=== PATIENT | female | born 1955 | race Caucasian/White ===

== ENCOUNTER 2023-11-18 09:08 | Inpatient (IN) | payer OTHER, SELFPAY ==
--- NOTE | 2023-10-21 07:14 | CM ---
Patient is scheduled for an elective L TKR on 11/18/23. Spoke with patient prior to surgery via telephone. Patient had a R TKR at in 2021. Reintroduced role of Orthopedic Navigator. Patient reports that she lives with a friend in a one story home.
There is one step to enter. She currently functions independently. She has a rolling walker and cane. She has never had VN services. PCP is Dr. Lul Laurent.
Discussed orthopedic program and post surgical plans. Reviewed that goal is for her to return home when directed by surgeon. Also reviewed outpatient PT. Patient is in agreement with tentative plan and will go directly to outpatient PT at [facility] PT. She will have support from her friend when she goes home.
Patient will complete online education.
Plan: Orthopedic Navigator will remain available to assist with the care of patient and will reassess discharge needs after surgery.
--- NOTE | 2023-11-02 10:25 | HPS.HSE ---
Family Physician
-
Family Physician: Lul Laurent
Chief Complaint
-
Advanced primary osteoarthritis of the left knee.
History of Present Illness
The patient is a 68-year-old morbidly obese, female presenting today for advanced primary osteoarthritis of the left knee. The patient previously underwent an uncomplicated right total knee arthroplasty in December [address] Jamshid Hendricks.
She returns to [facility] today with complaints of significant left knee pain associated with her osteoarthritis. She notes that her current left knee pain is greatly interfering with her activities of daily living and is overall impacting
her quality of life. She has tried and failed multiple conservative treatment measures in the past for her left knee pain. These conservative treatment measures include physical therapy, self-directed therapeutic exercises, injection therapy,
medical management with Tylenol and NSAIDs, and the application of ice and/or heat. Recent x-ray findings of the left knee demonstrated advanced osteoarthritic changes. She was determined to be in need of a left total knee arthroplasty. She denies
any current complaints today, such as chest pain, shortness of breath, palpitations, nausea, vomiting, diarrhea, lightheadedness, dizziness, cough, sore throat, or fever.
Medical History
Past Medical History
Past Medical History: Reports Other
Additional Past Medical History:
1. Osteoarthritis, status post right total knee arthroplasty, 12/2021, by Dr. Jamshid Hendricks.
2. Hypertension.
3. Hypercholesterolemia.
4. Heart murmur; echocardiogram, 09/2021, without significant valvular disease.
5. Chronic peripheral edema.
6. Obstructive sleep apnea, non-compliant with CPAP.
7. Lumbar degenerative disc disease.
8. Lumbago.
9. Uterine fibroids, status post hysterectomy.
10. Anxiety.
11. Depression.
12. Acute renal failure after previous laminectomy, secondary to acute urinary retention.
13. Prediabetes, A1c 6.1.
14. Morbid obesity, BMI 43.2; status post sleeve gastrectomy.
15. Current tobacco abuse.
16. Cannabis dependence.
Past Surgical History: Reports Other
Additional Past Surgical History:
1. Right total knee arthroplasty, 12/2021, by Dr. Jamshid Hendricks.
2. Bilateral carpal tunnel release.
3. Right humerus repair.
4. Hysterectomy.
5. L1-L5 laminectomy.
6. Sleeve gastrectomy.
7. Epidural steroid injections.
8. Colonoscopy.
Social History
Tobacco: Smoker (She is a current 2-3 cigarette per day smoker but is reportedly attempting to quit prior to surgery. She is utilizing Nicoderm gum in her attempts to quit. She reports she has been smoking on and off for the last 40 years. )
Alcohol: None
Drug: Marijuana (occasional, recreational)
Living: Other (The patient lives in a [place] with her friend. )
Family History
Family History: Not pertinent
Allergies / Home Medications
Allergy/Medication List:
HOME MEDICATIONS:
1. Rosuvastatin calcium 10 mg p.o. daily.
2. Losartan/hydrochlorothiazide 100-25 mg p.o. daily.
3. Bupropion HCl 300 mg p.o. daily.
4. Amlodipine 5 mg p.o. daily.
5. Escitalopram oxalate 20 mg p.o. daily.
�
ALLERGIES:� Sulfa. Tramadol and NSAIDs per records.
Review of Systems
-
A 12 point ROS was completed and negative except as noted: Yes
Physical Exam
Vital Signs
Blood pressure 156/89. Heart rate 59. Respirations 18. Pulse ox 97%.
Height 5 feet, 0.5 inches. Weight 102.1 kg. BMI 43.2.
Physical Exam
General: Well Developed, Well Nourished and No Apparent Distress
HEENT: NormoCephalic, Moist mucous membranes, Atraumatic and PERRLA
Respiratory: Clear
Cardiac: Regular Rhythm
GI: Soft, Non Tender, Non Distended and Other (Morbidly obese. )
Musculoskeletal: Other (Left knee and lower extremity: varus alignment, trace effusion, range of motion 0-140, tenderness to palpation over medial joint line and peripatellar. Able to preform straight leg raise. )
Skin: Warm and Dry
Neuro: AO x 3 and Nonfocal/grossly intact
Laboratory Results
-
DIAGNOSTIC STUDIES as of 11/02/2023: White blood cell count 8.3. Hemoglobin 15.1. Platelet count 244,000. Sodium 140. Potassium 4.2. BUN 19. Creatinine 0.7. Glucose 88. Hemoglobin A1c 6.1. Calcium 9.2. AST 23. ALT 19. Albumin 4.0. MRSA screen
negative.
EKG 11/02/2023: Sinus bradycardia. Nonspecific T wave abnormality. When compared to the EKG of September 22, 2021, no significant change was found.
Nuclear stress test 10/08/2021: Negative EKG for ischemia. No complex arrhythmias.
Echocardiogram 10/08/2021: Study quality suboptimal due to poor acoustic windows. There is normal biventricular systolic function with an ejection fraction 60-65%.� There is grade 1 diastolic dysfunction.�Cannot adequately assess regional wall
motion abnormalities due to poor endocardial visualization. Aortic valve is suboptimally visualized although appears to display adequate leaflet excursion without significant aortic stenosis or regurgitation.
Impression/Plan
-
CLEARANCES:
1. Primary medical, Lul Laurent MD, cleared.
� � Primary medical phone number: [phone].
2. Dental cleared.
IMPRESSION/PLAN:
1. Advanced primary osteoarthritis of the left knee in need of a left total knee arthroplasty by Dr. Jamshid Hendricks on 11/18/2023. The benefits and risks of the procedure have been explained to the patient. The patient understands these risks and
wishes to proceed.
2. DVT prophylaxis: Aspirin with bilateral venous compression devices.
3. Acute renal failure after previous laminectomy secondary to urinary retention: The patient will undergo frequent bladder scans and post-void residuals during admission. She will be started on Flomax daily post-surgery and NSAIDs will ultimately
be avoided. We will repeat a BMP the day after her procedure.
4. Pain management: We will utilize Oxycodone as needed for moderate to severe post-operative pain, Gabapentin 200 mg p.o. three times a day, lidocaine patches, and Tylenol. This pain medication regimen worked well after the patient's previous right
total knee arthroplasty.
5. Current tobacco abuse: Smoking cessation was stressed prior to surgery. The patient is aware the continued tobacco abuse can impair her wound from healing correctly and greatly increases her risk of post-operative infection.
Patient's phone number: [phone].
Patient's contact (Lis Duong - Friend): [phone].
[2023-11-02 13:13] VITALS: BMI 43.3
[2023-11-02 13:36] LABS: Hematocrit 44.8 % (37.0-47.0); Hemoglobin 15.1 g/dL (12.0-16.0); Mean Corp Hgb Conc. 33.7 g/dL (33.0-37.0); Mean Corpuscular Hgb 31.3 pg (27.0-31.0); Mean Corpuscular Volume 92.8 fL (81.0-99.0); Mean Platelet Volume 9.8 fL (7.4-10.4); Platelet Count 244 10^3/uL (130-400); Red Blood Cell Count 4.83 10^6/uL (4.20-5.40); Red Cell Dist. Width 13.2 % (11.5-14.5); White Blood Cell Count 8.3 10^3/uL (4.8-10.8)
[2023-11-02 13:49] LABS: ALT (SGPT) 19 U/L (0-35); AST (SGOT) 23 U/L (14-36); Alkaline Phosphatase 72 U/L (38-126); Blood Urea Nitrogen 19 mg/dl (7-17); Calcium 9.2 mg/dl (8.4-10.2); Carbon Dioxide 29 mmol/L (22-30); Chloride 103 mmol/L (98-107); Estimated Creatinine Clearance 82 ml/min; Glucose 88 mg/dl (70-99); Sodium 140 mmol/L (135-145); Total Bilirubin 0.6 mg/dl (0.2-1.3); Total Protein 6.9 g/dl (6.3-8.2); eGFR > 60.00
[2023-11-02 14:01] LABS: Potassium 4.2 mmol/L (3.5-5.1)
[2023-11-02 16:20] VITALS: BMI 43.3
[2023-11-03 09:49] LABS: Glycohemoglobin (HgbA1c) 6.1 % (4.0-5.6)
[2023-11-18] VITALS (14 sets, daily range): BP systolic 140–176; BP diastolic 78–96; PULSE 85; O2SAT 95
[2023-11-18] MEDS: TYLENOL 650 MG PO ×3 (09:32→19:16)
[2023-11-18] MEDS: NORMOSOL-R 1000 IV (09:33)
[2023-11-18] MEDS: MOBIC 15 MG PO (09:33)
[2023-11-18 13:53] LABS: Glucose - Point of Care 170 mg/dl (70-99)
[2023-11-18] MEDS: DEMEROL 12.5 MG IV ×2 (14:04→14:16)
[2023-11-18] MEDS: DILAUDID 0.5 MG IV (14:28)
--- NOTE | 2023-11-18 14:35 | W.PN.UPDATE ---
Update Note
Progress Note Update
L knee OA s/p L TKA w/ Dr Hendricks 11/18/23
- s/p R TKA, 12/2021, by Dr Hendricks
DVT prophylaxis - ASA, b/l venous foot pumps
HTN - + parameters - monitor BP
Obstructive sleep apnea, non-compliant with CPAP - monitor O2
- Add supplemental O2 HS
- IS
Lumbar degenerative disc disease and lumbago - add Gabapentin TID (tolerated well after R TKA)
Acute renal failure after previous laminectomy, secondary to acute urinary retention - monitor voids
- Bladder scan/straight cath as needed. Will check PVRs
- Start daily Flomax
- Avoid nephrotoxins such as NSAIDs
- BMP in AM
Current tobacco abuse - smoking cessation education provided pre-op
- Nicoderm patch ordered
Hypercholesterolemia
Heart murmur; echocardiogram, 09/2021, without significant valvular disease.
Chronic peripheral edema
Uterine fibroids, status post hysterectomy
Anxiety
Depression
Prediabetes, A1c 6.1
Morbid obesity, BMI 43.2; status post sleeve gastrectomy
Cannabis dependence
[2023-11-18] MEDS: ROXICODONE 5 MG PO ×2 (14:50→19:26)
[2023-11-18] MEDS: NSS 1000 IV (14:55)
[2023-11-18] MEDS: NEURONTIN 200 MG PO ×2 (15:16→22:56)
--- NOTE | 2023-11-18 15:38 | SUR.PHASEI ---
patient in pacu post total left knee replacement with general anesthesia, c/o of severe pain on arrival, does fall asleep intermittently, medicated for pain and shivers with demerol and dilaudid - started PO meds, roxicodone, neurontin, and tylenol.
Patient does sleep intermittently, snoring,when awake states pain 5-7. but able to sleep. dressing dry. Attempted to reach patient's friend with notice of room delay - message left.
--- NOTE | 2023-11-18 15:45 | OR.RPT ---
Operative Report
Operative Report
Orthopaedic Surgery Operative Note
DATE OF OPERATION: 11/18/2023
PREOPERATIVE DIAGNOSES: Osteoarthritis, left knee.
POSTOPERATIVE DIAGNOSES: Osteoarthritis, left knee
OPERATION PERFORMED: Left total knee arthroplasty (54087 with 22 modifier for complexity).
SURGEON: Jamshid Hendricks MD
ASSISTANTS: Hussein Cota PA-C who assisted with patient and limb positioning and retraction
ANESTHESIA: General
COMPLICATIONS: None.
ESTIMATED BLOOD LOSS: 20mL
DRAINS: None
TOURNIQUET TIME: 47 minutes.
IMPLANTS:
- Consuelo Persona CR Femur, size 7
- Consuelo Persona tibia base plate, size D
- Consuelo Persona ultracongruent articular surface, 10 mm
INDICATIONS: The patient presented to my office with debilitating left knee pain due to osteoarthritis. We reviewed the natural history of this problem, as well as the risks, benefits, and alternatives of various treatment options. The patient
exhausted all nonoperative treatment options and wished to proceed with knee replacement surgery. The patient understood the risks which included, but were not limited to, bleeding, infection, failure to relieve pain, more pain than preop, damage to
blood vessels and nerves, need for reoperation, mechanical failure of the implants, wound healing problems, stiffness, instability, blood clot, pulmonary embolism, myocardial infarction, pneumonia, arrhythmia, CVA, and . The patient accepted
these risks and wished to proceed. All questions were answered, and informed consent was obtained.
PROCEDURE IN DETAIL: The patient was identified in the preoperative holding area. The left knee was identified as the operative site. The patient was taken in the operating room and placed in a supine position on the operating table. Spinal
anesthesia was performed. IV antibiotics and tranexamic acid were administered. A bump was placed under the left hemipelvis. A well-padded tourniquet was placed on the proximal thigh. All bony prominences were well padded. The left lower extremity
was prepped and draped in the usual sterile fashion.
We performed a surgical time-out. An interarticular block was performed with local anesthetic with epinephrine. The limb was exsanguinated with an Esmarch bandage, then the tourniquet was inflated to 250 mmHg. A midline skin incision was made
followed by a medial parapatellar arthrotomy. A subperiosteal peel was performed on the medial tibia. I excised part of the infrapatellar fat pad to improve our visualization as well as tissue over anterior femur. The patella was everted and the
knee was flexed. I excised the remnants of the anterior and posterior cruciate ligaments as well as tibial and femoral osteophytes with rongeurs.
The knee was flexed, and the extramedullary tibial cutting guide was aligned. Jack was aligned at neutral, rotation was centered on the tibial tubercle, and coronal alignment was aligned with the mechanical axis of the tibia and center of the ankle
joint. The cut height was 10mm off the lateral tibia joint surface. The guide was secured into place. The MCL and LCL were protected. The tibia surface was cut. The cut surface was inspected after removal to ensure appropriate height and slope based
on the preoperative plan. The cut was checked with a drop bria. It was centered nicely at the ankle.
A drill was used to open the femoral canal. The intramedullary distal femoral cutting guide was inserted into the femur. This was set at 5 degrees +0. This was secured into place with three pins. The cut level was checked with an margot wing. The
distal femur was cut through the cutting guide. The IM guide was reinserted to double check that the level of resection was flush and in appropriate alignment.
Newton�s line and the transepicondylar axis were marked on the femur. The femoral sizing guide was applied to the anterior femur. Pins were inserted, and the 4-in-1 cutting guide was applied and secured into place. The rotation was compared to
Newton�s line, the transepicondylar axis, and the neutral tibia cut and was found to be appropriate. The width was checked and found to be appropriate and lateralized on the femur. The anterior, posterior, and chamfur cuts were made. A lamina
web merchant was used to open the flexion gap, and posterior osteophytes were removed with a curved osteotome. The remnant medial and lateral meniscus were also removed. I prophylactically cauterized the lateral geniculate arteries. A 10mm spacer block
was applied to the flexion gap and was noted to be balanced medially and laterally. The knee was extended, and the block showed symmetric to extension and flexion gaps.
The tibia was exposed and sized. Rotation was set in line with the tibial tubercle and congruent with the femur. The trial was secured into place with two pins. The trial femur was impacted into place, and a trial articular surface was placed. The
knee was taken through range of motion and noted to be stable throughout the arc of motion without gaping or excess tension. The patella centrally throughout the arc of motion without need for further releases. No full thickness cartilage defects.
The trials were removed. The tibia keel was prepared with the punch and the drill. The bone surfaces were irrigated with sterile saline and dried. The cement was mixed in a vacuum mixer. Cement gun was used to apply cement to the tibial surface and
the undersurface of the tibial implant. Cement was pressurized into the tibial canal and tibia surface. The tibial component was impacted into place. Excess cement was removed. Cement was applied to the femoral surface and the femoral component. The
femoral component was impacted into place, and excess cement removed. A trial articular surface was inserted, and the knee was extended while the cement polymerized. The tourniquet was let down, and meticulous hemostasis was achieved. Dilute
betadine was poured into the wound and allowed to soak for 3 minutes. The knee was irrigated with copious normal saline.
Once the cement was polymerized, the trial articular surface was removed. Any excess cement was removed. The knee was trialed, and the final articular surface was selected and inserted into the tibial locking mechanism. The knee was reduced. A fresh
drape was applied to the surgical field.
The arthrotomy was closed with 0-PDS. Once closed, an interarticular block was performed with local anesthetic with epi. The deep dermal layer was closed with 2-0 PDS, and the subcuticular skin was closed with 3-0 monocryl. A Dermabond Prineo
dressing was applied to the skin in full flexion. Once this was completely dry, a sterile waterproof dressing was applied.
The anesthesia team performed an adductor canal block in the OR. The patient awoke from anesthesia without any difficulties. The sponge and instrument counts were correct x2 at the end of the case.
Of note, 22 modifier was added for complexity due to BMI >40kg/m2 which added 20 additional minutes for positioning, exposure, and implanting the components
Herson Hendricks MD
--- NOTE | 2023-11-18 16:38 | PTCARENOTE ---
Patient admitted from pacu post left total knee replacement.The patient rates her pain at a 9 out of 10.She had her last Dilaudid at 1428.Neurovascular assessment is within normal limits and ongoing.The Mepilex dressing is intact without drainage.
Vital signs are stable.The patient is in her bed with the call pino in reach.
[2023-11-18] MEDS: WELLBUTRIN XL (24 hour extended release) 300 MG PO (17:47)
[2023-11-18] MEDS: LIDOCAINE 4% PATCH 2 PATCH TOPICAL (17:47)
[2023-11-18] MEDS: ASPIRIN 325 MG PO (17:48)
[2023-11-18] MEDS: CRESTOR 10 MG PO (17:48)
[2023-11-18] MEDS: FLOMAX 0.400000000000000022 MG PO (17:48)
[2023-11-18] MEDS: LEXAPRO 20 MG PO (17:49)
[2023-11-18] MEDS: NORVASC 5 MG PO (17:50)
[2023-11-18] MEDS: ANCEF 5 IV (17:51)
[2023-11-18] MEDS: SENOKOT 17.1999999999999993 MG PO (19:16)
[2023-11-18] MEDS: COLACE 100 MG PO (19:16)
[2023-11-18] MEDS: PEPCID 20 MG PO (22:55)
[2023-11-18] MEDS: BACTROBAN 2% OINTMENT 1 APPLIC NASAL (22:55)
[2023-11-19] MEDS: TYLENOL PO ×2 (00:26→04:57)
[2023-11-19] MEDS: ANCEF 5 IV (01:30)
[2023-11-19 03:40] VITALS: BP 144/84
[2023-11-19 05:08] LABS: Blood Urea Nitrogen 16 mg/dl (7-17); Calcium 8.3 mg/dl (8.4-10.2); Carbon Dioxide 26 mmol/L (22-30); Chloride 102 mmol/L (98-107); Estimated Creatinine Clearance 72 ml/min; Glucose 124 mg/dl (70-99); Potassium 4.5 mmol/L (3.5-5.1); Sodium 136 mmol/L (135-145); eGFR > 60.00
[2023-11-19 07:35] VITALS: BP 143/87
[2023-11-19] MEDS: LIDOCAINE 4% PATCH 2 PATCH TOPICAL (08:07)
[2023-11-19] MEDS: ROXICODONE 10 MG PO (08:07)
[2023-11-19] MEDS: CRESTOR 10 MG PO (08:08)
[2023-11-19] MEDS: ASPIRIN 325 MG PO (08:08)
[2023-11-19] MEDS: COLACE 100 MG PO (08:08)
[2023-11-19] MEDS: TYLENOL 650 MG PO ×2 (08:08→12:07)
[2023-11-19] MEDS: LEXAPRO 20 MG PO (08:08)
[2023-11-19] MEDS: NEURONTIN 200 MG PO (08:08)
[2023-11-19] MEDS: FLOMAX 0.400000000000000022 MG PO (08:08)
[2023-11-19] MEDS: SENOKOT 17.1999999999999993 MG PO (08:09)
[2023-11-19] MEDS: WELLBUTRIN XL (24 hour extended release) 300 MG PO (08:09)
[2023-11-19] MEDS: BACTROBAN 2% OINTMENT 1 APPLIC NASAL (08:10)
[2023-11-19] MEDS: NORVASC PO (08:10)
[2023-11-19 08:27] VITALS: BP 143/87
--- NOTE | 2023-11-19 08:57 | CM ---
Addendum entered by aTsia Maguire 11/19/23 10:43:
Patient did well in therapy. She has no concerns about going home and has updated her friend.
Original Note:
Reviewed chart and held rounds with PT, OT and nursing. Patient admitted as planned for elective L TKR. Met with patient at bedside. Confirmed information previously obtained for assessment. Also discussed discharge plans. The plan is for patient to
return home at discharge. She will have support from her friend when she goes home. Patient will go directly to outpatient PT and will go to [facility] PT. She has an appointment scheduled for Wednesday, 11/22.
Patient has a rolling walker and cane.
She will use [facility] for discharge prescriptions.
[2023-11-19] MEDS: TORADOL 15 MG IV (09:29)
--- NOTE | 2023-11-19 09:35 | W.PN.ORTHO ---
Today's Communication / Plan
-
Await PT and OT recs.
D/c later today if remaining clinically stable.
Assessment
.
Distal Motor Intact: Yes
Dressing:
Clean, dry and intact.
Assessment:
L knee OA s/p L TKA w/ Dr Hendricks 11/18/23
- s/p R TKA, 12/2021, by Dr Hendricks
DVT prophylaxis - ASA, b/l venous foot pumps
L knee pain - will switch Oxycodone to Dilaudid prn per pt preference (tolerated IV in PACU)
HTN - + parameters - BPs stable
Obstructive sleep apnea, non-compliant with CPAP - monitor O2 - currently on 1L supplemental O2; will wean as tolerated
- IS
Lumbar degenerative disc disease and lumbago - continue Gabapentin TID (tolerated well after R TKA)
Acute renal failure after previous laminectomy, secondary to acute urinary retention - voiding appropriately by POD 1
- Daily Flomax during admission
- Minimizing nephrotoxins such as NSAIDs
- BUN/Cr stable 11/18
Current tobacco abuse - smoking cessation education provided pre-op
- Nicoderm patch ordered
Hypercholesterolemia
Heart murmur; echocardiogram, 09/2021, without significant valvular disease.
Chronic peripheral edema
Uterine fibroids, status post hysterectomy
Anxiety
Depression
Prediabetes, A1c 6.1
Morbid obesity, BMI 43.2; status post sleeve gastrectomy
Cannabis dependence
Plan
.
Surgery / Date: L TKA w/ Dr Hendricks 11/18/23
DVT Prophylaxis: Aspirin
Activity:
Out of bed.
PT/OT
Discharge Plan: Home w/ Outpatient PT
Subjective
.
.:
Patient examined resting in bed.
Reporting post-surgical L knee pain worse than previous R TKA - pain meds adjusted.
Denies any other new significant complaints.
Eager for potential d/c today.
Vital Signs and Labs
.
Vital Signs and Labs:
Lab Results
11/02/23 12:42
11/19/23 04:15
Temp Pulse Resp BP Pulse Ox
98.4 F 75 18 143/87 94
11/19/23 07:35 11/19/23 07:35 11/19/23 07:35 11/19/23 08:10 11/19/23 07:35
Physical Exam
-
HEENT: No pallor, cyanosis, or jaundice. Throat clear.
NECK: Supple. No JVD.
RESPIRATORY: Lungs clear to auscultation.
CVS: S1, S2 normal. RRR.�
ABDOMEN: Soft, non-tender. No distension. Morbidly obese.
EXTREMITIES: Strength equal, no calf pain with palpation/dorsiflexion. Calves soft.
OFFICE MESSENGER: AOx3. No focal deficits. project geophysicist grossly intact
[2023-11-19 10:01] VITALS: BP 147/69; PULSE 85; O2SAT 95
--- NOTE | 2023-11-19 10:48 | W.DS.TRANS ---
DC Summary - Compliance Examiner
-
Discharge Instructions:
Discharge Diagnosis/Procedures L knee OA s/p L TKA w/ Dr Hendricks 11/18/23
Diet Regular
Activity As tolerated,With Walker
Driving Restrictions Not until seen by your Dr
Bathing Restrictions OK to Shower
Other Services PT
Wound Care Leave dressing on until seen by surgeon's office
for follow-up in 2 weeks.
Instructions:
Stand-Alone Forms: Total Hip/Knee Replacement D/C
Changes to Home Medications: Yes
Discharge Medications:
DC Medications w/original date entered in [facility]
bupropion HCl 300 mg 24 hr tablet, extended release 300 mg PO DAILY Depression 09/19/21
rosuvastatin 10 mg tablet 10 mg PO DAILY High Cholesterol 09/19/21
escitalopram oxalate 20 mg tablet 20 mg PO DAILY Depression 11/20/21
mupirocin 2 % topical ointment 1 applic intranasal BID #1 tube 11/02/23
Saccharomyces boulardii 250 mg capsule (Florastor) 250 mg PO DAILY #7 caps 11/19/23
acetaminophen 500 mg tablet (Tylenol Extra Strength) 1,000 mg (2 x 500 mg) PO Q6H #60 tabs 11/19/23
amlodipine 5 mg tablet 5 mg PO DAILY #0 tabs 11/19/23
aspirin 325 mg tablet 325 mg PO DAILY #30 tabs 11/19/23
cefadroxil 500 mg capsule 500 mg PO DAILY #7 caps 11/19/23
docusate sodium 100 mg capsule 100 mg PO BID #30 caps 11/19/23
famotidine 20 mg tablet 20 mg PO HS #30 tabs 11/19/23
gabapentin 100 mg capsule 200 mg (2 x 100 mg) PO TID #30 caps 11/19/23
hydromorphone 2 mg tablet (Dilaudid) 2 - 4 mg (1 - 2 x 2 mg) PO Q4H PRN moderate-severe pain #30 tabs 11/19/23
lidocaine 4 % topical patch 2 patch topical DAILY #30 ea 11/19/23
losartan 100 mg-hydrochlorothiazide 25 mg tablet 1 tab PO DAILY Blood Pressure #0 tabs 11/19/23
prochlorperazine maleate 5 mg tablet 5 mg PO Q8H PRN nausea and vomiting #30 tabs 11/19/23
sennosides 8.6 mg tablet (Senna Laxative) 17.2 mg (2 x 8.6 mg) PO BID #30 tabs 11/19/23
Home Medication Changes
aspirin 325 mg tablet 325 mg PO DAILY #30 tabs 11/19/23
cefadroxil 500 mg capsule 500 mg PO DAILY #7 caps 11/19/23
docusate sodium 100 mg capsule 100 mg PO BID #30 caps 11/19/23
famotidine 20 mg tablet 20 mg PO HS #30 tabs 11/19/23
gabapentin 100 mg capsule 200 mg (2 x 100 mg) PO TID #30 caps 11/19/23
hydromorphone 2 mg tablet (Dilaudid) 2 - 4 mg (1 - 2 x 2 mg) PO Q4H PRN moderate-severe pain #30 tabs 11/19/23
lidocaine 4 % topical patch 2 patch topical DAILY #30 ea 11/19/23
prochlorperazine maleate 5 mg tablet 5 mg PO Q8H PRN nausea and vomiting #30 tabs 11/19/23
sennosides 8.6 mg tablet (Senna Laxative) 17.2 mg (2 x 8.6 mg) PO BID #30 tabs 11/19/23
Pending Results: No
[2023-11-19 10:50] VITALS: BP 128/62; PULSE 80; O2SAT 92
[2023-11-19 11:31] VITALS: BP 134/83
[2023-11-19] MEDS: DILAUDID 2 MG PO (12:07)
[2023-11-19] MEDS: FLUZONE HIGH-DOSE QUAD 2023-24 0.699999999999999956 ML IM (12:08)
== END 2023-11-19 14:52 | disposition home or self-care (01) | DRG 470 ==
LOC: 2 SOUTH 09:08
PROVIDERS: Physician Assistant; ADMITTING PHYSICIAN Orthopaedic Surgery; FAMILY PHYSICIAN Family Medicine
PROC: 0SRD0J9 Replacement of Left Knee Joint with Synthetic Substitute, Cemented, Open Approach (ICD-10-PCS; 2023-11-18)
DX: M17.12 Unilateral primary osteoarthritis, left knee (principal); Z68.41 Body mass index [BMI] 40.0-44.9, adult; N17.9 Acute kidney failure, unspecified; E66.01 Morbid (severe) obesity due to excess calories; E78.00 Pure hypercholesterolemia, unspecified; F17.210 Nicotine dependence, cigarettes, uncomplicated; F32.A Depression, unspecified; I10 Essential (primary) hypertension; G47.33 Obstructive sleep apnea (adult) (pediatric); Z91.199 Patient's noncompliance with other medical treatment and regimen due to unspecified reason; F41.9 Anxiety disorder, unspecified; M51.36 Other intervertebral disc degeneration, lumbar region
CPT/HCPCS: 36415; 73560; 80048; 80053; 82962; 83036; 85027; 87070; 90662; 93005; 97110; 97116; 97162; 97166; 97530; 97535; 99406; C1713; C1776; G0008

== ENCOUNTER → 2024-03-10 11:42 | Outpatient (REF) | payer OTHER, SELFPAY | LOC: RAD 11:42 | PROVIDERS: ATTENDING PHYSICIAN Physical Medicine & Rehabilitation; FAMILY PHYSICIAN Family Medicine | DX: M47.816 Spondylosis without myelopathy or radiculopathy, lumbar region (principal) | CPT/HCPCS: 72114 ==